=== PATIENT | female | born 1975 | race Asian ===

== ENCOUNTER → 2016-05-24 | Outpatient (CLI) | payer OTHER | LOC: MC.RAD 13:11 | DX: Z12.31 Encounter for screening mammogram for malignant neoplasm of breast (principal) ==

== ENCOUNTER → 2017-05-30 | Outpatient (CLI) | payer OTHER | LOC: MC.RAD 12:48 | DX: Z12.31 Encounter for screening mammogram for malignant neoplasm of breast (principal) ==

== ENCOUNTER → 2018-03-06 | Outpatient (CLI) | payer OTHER | LOC: SUN.DIA 09:06 | DX: O24.419 Gestational diabetes mellitus in pregnancy, unspecified control (principal); Z3A.31 31 weeks gestation of pregnancy | CPT/HCPCS: G0108 ==

== ENCOUNTER → 2018-03-18 | Outpatient (CLI) | payer OTHER | LOC: SUN.DIA 13:33 | DX: O24.419 Gestational diabetes mellitus in pregnancy, unspecified control (principal); Z3A.33 33 weeks gestation of pregnancy | CPT/HCPCS: G0108 ==

== ENCOUNTER 2018-05-05 06:26 | Inpatient (IN) | payer OTHER ==
[~2018-05-05] VITALS: Ht 154.9 cm; Wt 65.5 kg
[2018-05-05] VITALS (35 sets, daily range): BP systolic 110–152; BP diastolic 58–93; PULSE 82–133; TEMP 97.4–98.6
[2018-05-05] MEDS ORDERED: PRENATAL MVI (06:59)
--- NOTE | 2018-05-05 07:45 | NUR ---
G2L1 at 39.3 weeks gestation to LDR3 with for induction of labor. She is AMA and GDM - diet controlled. Patient changed into gown and wedged left in bed. Plan of care reviewed. EFMs explained and applied. FHR 150 bpm and reactive. Irregular contractions per toco. VSS. Assessment and consents completed. 0740 - IV started in left wrist with labs drawn from site. LR infusing per protocol. SVE /-2. 0745 - Pitocin started at 2mu per orders and protocol. Patient and spouse oriented to room and call light.
--- NOTE | 2018-05-05 07:54 | NUR ---
Blood sugar 136. Patient reports having 1 piece of toast with jam, a glass of almond milk, and 1 bite of a brownie at 0640.
[2018-05-05 08:15] LABS: BASO % 0.5 % (0.0-2.0); EOS # 0.1 (0.0-0.7); EOS % 1.4 % (0-4.0); GRAN # 4.2 (1.4-6.5); GRAN % 71.1 % (42.2-75.2); HEMOGLOBIN 10.5 g/dl (12.5-16.0); LYMPH # 1.2 (1.2-3.4); LYMPH % 20.3 % (20.0-51.0); MEAN CELL VOLUME 90 fl (80.0-100.0); MEAN CORPUSCULAR HEMOGLOBIN 29 pg (27.0-31.0); MEAN CORPUSCULAR HGB CONC 32 g/dl (33.0-37.0); MEAN PLATELET VOLUME 9.6 fl (7.4-10.4); MONO # 0.4 (0.1-0.6); MONO % 5.9 % (1.7-9.3); PLATELET COUNT 260 K/mm3 (130-400); RED BLOOD COUNT 3.63 M/mm3 (4.10-5.30); REDCELL DISTRIBUTION WIDTH-CV 13.7 % (11.5-14.5)
[2018-05-05 08:18] LABS: HEMATOCRIT 32.7 % (37.0-47.0)
--- NOTE | 2018-05-05 09:20 | NUR ---
Dr. Ghotra at bedside. Reviews FHR tracing. SVE with AROM. 4/70/-2 with clear fluid noted. Blood sugar taken and is 86. Reported to Dr. Ghotra. No further blood sugars needed per Dr. Ghotra.
--- NOTE | 2018-05-05 10:30 | NUR ---
Patient more uncomfortable with contractions, breathing through them - request epidural. IVF bolus started. TIRE WRAPPER notified.
--- NOTE | 2018-05-05 10:46 | NUR ---
1042 LUZ MARIA Villa to room to place epidural. Patient sits upright on the side of the bed for procedure. FHR difficult to monitor in this position and EFM traces maternal HR as it coorelates to spO2 tracing. 1046 Test dose administered by LUZ MARIA Villa. See anesthesia records for details. 1051 Patient positioned to left side.
--- NOTE | 2018-05-05 12:00 | NUR ---
Dr. Ghotra at bedside. Reviews FHR tracing. SVE - complete. 1205 - Patient begins to push with contractions. Dr. Ghotra remains on unit.
--- NOTE | 2018-05-05 13:22 | NUR ---
1315 Dr. Ghotra to room for delivery, patient prepped and continues to push with contractions. 1322 Spontaneous vaginal delivery of viable female infant by Dr. Ghotra. Cord clamped and cut and to the care of the nursery RN. 1336 Spontaneous delivery of placenta by Dr. Ghotra. Pitocin infusing at 333ml/hr per orders and protocol. Fundus firm, lochia WNL. Repair of 2nd degree laceration and right labial laceration by Dr. Ghotra.
--- NOTE | 2018-05-05 16:15 | NUR ---
Patient assisted to bathroom, unable to void. Perineum and labia swollen. Chamberlain catheter inserted. Ice pack on. Patient to room 208 via wheelchair. Plan of care reviewed.
[2018-05-06 05:00] VITALS: BP 127/75; PULSE 91; TEMP 98.3
--- NOTE | 2018-05-06 09:20 | NUR ---
Initial visit; Mom thanked [employer] for offering congratulations and God's blessings for the of her daughter. Net Technical Architect thanked family for choosing [facility].
[2018-05-06 09:24] VITALS: BP 121/72; PULSE 91; TEMP 97.9
[2018-05-06] MEDS ORDERED: IBU800 M1 PO (09:36)
[2018-05-06] MEDS ORDERED: PERCOCET 325 MG1 TA2 PO (09:36)
[2018-05-06 16:11] VITALS: BP 117/82; PULSE 88; TEMP 98.6
[2018-05-06 21:30] VITALS: BP 120/79; PULSE 70; TEMP 98
[2018-05-07 07:45] VITALS: BP 119/74; PULSE 77; TEMP 97.5
== END 2018-05-07 11:15 | disposition home or self-care (01) | DRG 807 ==
LOC: LDR 06:26 → OB 07:07 → LDR 07:07 → OB 16:37
PROVIDERS: ADMIT Student in an Organized Health Care Education/Training Program
PROC: 10E0XZZ Delivery of Products of Conception, External Approach (ICD-10-PCS; principal; 2018-05-05)
PROC: 0KQM0ZZ Repair Perineum Muscle, Open Approach (ICD-10-PCS; 2018-05-05)
PROC: 10907ZC Drainage of Amniotic Fluid, Therapeutic from Products of Conception, Via Natural or Artificial Opening (ICD-10-PCS; 2018-05-05)
PROC: 3E033VJ Introduction of Other Hormone into Peripheral Vein, Percutaneous Approach (ICD-10-PCS; 2018-05-05)
PROC: 0UQMXZZ Repair Vulva, External Approach (ICD-10-PCS; 2018-05-05)
DX: O24.420 Gestational diabetes mellitus in childbirth, diet controlled (principal); Z37.0 Single live birth; Z3A.39 39 weeks gestation of pregnancy; O70.1 Second degree perineal laceration during delivery; J45.909 Unspecified asthma, uncomplicated; O99.284 Endocrine, nutritional and metabolic diseases complicating childbirth; E28.2 Polycystic ovarian syndrome; O71.82 Other specified trauma to perineum and vulva
CPT/HCPCS: J2590; J7120

== ENCOUNTER → 2020-07-21 | Outpatient (CLI) | payer OTHER ==
[~2020-07-21] MED LIST: IBU800 M1 PO; PERCOCET 325 MG1 TA2 PO; PRENATAL MVI
== END ==
LOC: MC.RAD 14:41
DX: Z12.31 Encounter for screening mammogram for malignant neoplasm of breast (principal)

== ENCOUNTER → 2021-08-10 | Outpatient (CLI) | payer OTHER | LOC: MC.RAD 07:18 | DX: Z12.31 Encounter for screening mammogram for malignant neoplasm of breast (principal) ==

== ENCOUNTER → 2023-11-21 | Outpatient (CLI) | payer OTHER | LOC: MC.RAD 13:41 | DX: Z12.31 Encounter for screening mammogram for malignant neoplasm of breast (principal) ==